=== PATIENT | female | born 2000 | race African-American/Black ===

== ENCOUNTER 2020-04-20 17:23 | Emergency (ER) | payer BC ==
[~2020-04-20] VITALS: Ht 157.5 cm; Wt 46.8 kg
[2020-04-20 17:31] VITALS: TEMP 98.3
[2020-04-20 18:28] LABS: ALANINE AMINOTRANSFERASE 7 U/L (4-34); ALBUMIN 4.2 gm/dL (3.5-5.0); ALKALINE PHOSPHATASE 78 U/L (50-136); ANION GAP 7 mmol/L (7-16); AST,SGOT 20 U/L (15-37); BILIRUBIN,TOTAL 0.8 mg/dL (0.0-1.0); BLOOD UREA NITROGEN 9 mg/dL (7-17); CALCIUM 9.1 mg/dL (8.4-10.2); CARBON DIOXIDE 28 mmol/L (22-30); CHLORIDE 105 mmol/L (98-107); GLUCOSE 79 mg/dL (74-106); POTASSIUM 3.8 mmol/L (3.4-5.0); SODIUM 139 mmol/L (137-145); TOTAL PROTEIN 7.6 gm/dL (6.4-8.2)
[2020-04-20 18:36] LABS: ACETAMINOPHEN < 10 ug/mL (10-30); ALCOHOL(ethanol),MEDICAL < 10 mg/dL; SALICYLATE < 1.0 mg/dL
[2020-04-20 18:38] LABS: COLLECTION METHOD CLEAN CATCH
[2020-04-20 18:42] LABS: BASO % 0.5 % (0.0-2.0); EOS # 0.1 (0.0-0.7); EOS % 2.5 % (0-4.0); GRAN # 1.6 (1.4-6.5); GRAN % 43.3 % (42.2-75.2); HEMATOCRIT 39.3 % (37.0-47.0); HEMOGLOBIN 13.1 g/dl (12.5-16.0); LYMPH # 1.7 (1.2-3.4); MEAN CELL VOLUME 93 fl (80.0-100.0); MEAN CORPUSCULAR HEMOGLOBIN 31 pg (27.0-31.0); MEAN CORPUSCULAR HGB CONC 33 g/dl (33.0-37.0); MEAN PLATELET VOLUME 11.5 fl (7.4-10.4); MONO # 0.3 (0.1-0.6); MONO % 7.4 % (1.7-9.3); PLATELET COUNT 181 K/mm3 (130-400); RED BLOOD COUNT 4.24 M/mm3 (4.10-5.30); REDCELL DISTRIBUTION WIDTH-CV 11.9 % (11.5-14.5)
[2020-04-20 18:46] LABS: MUCOUS Present /lpf; PH 7 (5-8); SQUAMOUS EPITHELIAL 0-2 /hpf; URINE APPEARANCE Clear; URINE BACTERIA None Seen /hpf; URINE BILIRUBIN Negative (NEGATIVE); URINE BLOOD Negative (NEGATIVE); URINE COLOR Yellow; URINE GLUCOSE Negative (NEGATIVE); URINE KETONE Negative (NEGATIVE); URINE LEUKOCYTE ESTERASE Negative (NEGATIVE); URINE NITRATE Negative (NEGATIVE); URINE PROTEIN(semi-quant) Negative (NEGATIVE); URINE RBC 0-2 /hpf; URINE UROBILINOGEN Negative (NEGATIVE)
[2020-04-20 18:50] LABS: TRICYCLIC ANTIDEPRESS URINE NEGATIVE
[2020-04-20 18:58] LABS: TSH w REFLEX 0.721 uIU/mL (0.465-4.680)
[2020-04-20 20:20] VITALS: BP 120/67; PULSE 80
== END 2020-04-20 20:27 | disposition home or self-care (01) ==
LOC: COL.ER 17:23
PROVIDERS: Emergency Medicine
DX: R45.851 Suicidal ideations (principal); Z88.8 Allergy status to other drugs, medicaments and biological substances

== ENCOUNTER 2020-08-23 13:05 | Emergency (ER) | payer BC ==
[~2020-08-23] VITALS: Ht 157.5 cm; Wt 46.8 kg
[2020-08-23 13:34] VITALS: TEMP 101.7
[2020-08-23 14:23] LABS: BASO % 0.3 % (0.0-2.0); EOS % 0.3 % (0-4.0); GRAN % 59.8 % (42.2-75.2); HEMATOCRIT 37.9 % (37.0-47.0); HEMOGLOBIN 12.9 g/dl (12.5-16.0); LYMPH # 0.9 (1.2-3.4); LYMPH % 24.9 % (20.0-51.0); MEAN CELL VOLUME 93 fl (80.0-100.0); MEAN CORPUSCULAR HEMOGLOBIN 32 pg (27.0-31.0); MEAN CORPUSCULAR HGB CONC 34 g/dl (33.0-37.0); MEAN PLATELET VOLUME 11.1 fl (7.4-10.4); MONO # 0.5 (0.1-0.6); MONO % 14.1 % (1.7-9.3); PLATELET COUNT 163 K/mm3 (130-400); RED BLOOD COUNT 4.09 M/mm3 (4.10-5.30); REDCELL DISTRIBUTION WIDTH-CV 11.9 % (11.5-14.5)
[2020-08-23 14:31] LABS: CALCIUM 8.9 mg/dL (8.4-10.2); CREATININE, serum 0.66 (0.52-1.25); POTASSIUM 3.6 mmol/L (3.4-5.0)
[2020-08-23 14:44] VITALS: BP 109/66; PULSE 100
== END 2020-08-23 15:06 | disposition home or self-care (01) ==
LOC: COL.ER 13:05
PROVIDERS: Emergency Medicine
DX: U07.1 COVID-19 (principal); F17.210 Nicotine dependence, cigarettes, uncomplicated

== ENCOUNTER 2020-09-06 12:52 | Emergency (ER) | payer BC ==
[~2020-09-06] VITALS: Ht 157.5 cm; Wt 46.8 kg
[2020-09-06 13:06] VITALS: TEMP 98.5
[2020-09-06 13:56] VITALS: BP 125/70; PULSE 91
== END 2020-09-06 13:56 | disposition home or self-care (01) ==
LOC: COL.ER 12:52
DX: Z32.02 Encounter for pregnancy test, result negative (principal); F17.210 Nicotine dependence, cigarettes, uncomplicated; Z86.16 Personal history of COVID-19